=== PATIENT | female | born 1980 | race Caucasian/White ===

== ENCOUNTER 2022-09-08 08:26 | Emergency (ER) | payer SELFPAY ==
[2022-09-08] VITALS (11 sets, daily range): BP systolic 105–133; BP diastolic 66–76; PULSE 66–85; RESP 14–20; TEMP 36.8; O2SAT 99–100
--- NOTE | ~2022-09-08 | XR_ITS ---
EXAMINATION: XR chest 2V DATE: 09/08/2022 09:15 INDICATION: Chest pressure. Dizziness. TECHNIQUE: Frontal and lateral views of the chest were obtained. COMPARISON: None. FINDINGS: There is no pneumonia, pleural effusion, or pneumothorax. The heart size is normal. IMPRESSION: 1. No acute cardiopulmonary disease. Reviewed, dictated and finalized at location L.
--- NOTE | 2022-09-08 08:29 | ECG_ITS ---
Measurements Intervals [place] Rate: 68 P: 73 WI: 144 QRS: 85 QRSD: 94 T: 49 QT: 387 QTc: 413 Interpretive Statements SINUS RHYTHM WITH SINUS ARRHYTHMIA NORMAL ELECTROCARDIOGRAM NO PREVIOUS ECG AVAILABLE FOR COMPARISON Electronically Signed On 09-09-2022 12:40:46 CDT by Daniel Carbajal M.D.
[2022-09-08] MEDS: ASPIRIN 81 MG CHEWABLE TABLET 324 MG PO (09:07)
[2022-09-08 09:13] LABS: Basophils Percent Auto 0.8 % (0.2-1.2); Eosinophils Absolute Auto 0.1 K/mm3 (0-0.3); Eosinophils Percent Auto 1.3 % (0-4.4); Hematocrit 37.5 % (37.0-47.0); Hemoglobin 12.1 g/dL (12.0-15.0); Immature Granulocyte Absolute 0.01 K/mm3 (0.00-0.031); Immature Granulocyte Percent A 0.3 % (0-0.5); Lymphocytes Absolute Auto 1.13 K/mm3 (0.9-3.2); Lymphocytes Percent Auto 29.7 % (18.3-44.2); Mean Corpuscular HGB Conc 32.3 g/dl (32-36); Mean Corpuscular Hemoglobin 28.7 pg (26-34); Mean Corpuscular Volume 88.9 fl (80-100); Mean Platelet Volume 9.3 fl (7.4-10.4); Monocytes Absolute Auto 0.3 K/mm3 (0.1-0.6); Monocytes Percent Auto 7.6 % (2.6-8.5); Neutrophils Absolute Auto 2.3 K/mm3 (1.3-6.7); Neutrophils Percent Auto 60.3 % (45.5-73.1); Platelet Count Result 215 k/mm3 (150-375); Red Blood Count 4.22 M/mm3 (4.2-5.4); Red Cell Distribution Width 12.5 % (11.5-14.5); White Blood Count 3.8 K/mm3 (4.5-10.0)
[2022-09-08 09:22] LABS: Magnesium 1.9 mg/dL (1.6-2.3)
[2022-09-08 09:23] LABS: Alanine Aminotransferase 14 U/L (6-35); Albumin Level 4.2 g/dL (3.5-5.1); Alkaline Phosphatase 64 U/L (38-126); Anion Gap 7 mmol/L (8-16); Aspartate Amino Transferase 18 U/L (14-36); Bilirubin,Total 0.4 mg/dL (0.2-1.3); Blood Urea Nitrogen 15 mg/dL (7-17); Calcium 8.7 mg/dL (8.4-10.2); Carbon Dioxide 25 mmol/L (22-30); Chloride 106 mmol/L (98-107); Estimated CRCL calculation 80 ml/min; Estimated Glomerular Filt Rate > 60; Glucose 93 mg/dL (65-110); Lipase 124 U/L (23-300); Potassium 4.1 mmol/L (3.4-5.0); Sodium 138 mmol/L (137-145)
[2022-09-08 09:25] LABS: Partial Thromboplastin Time 32.2 SECONDS (22.3-36.8)
[2022-09-08 09:39] LABS: Troponin I < 0.012 ng/mL (0.000-0.034)
[2022-09-08 11:32] LABS: Influenza A QL RT-PCR Negative (Negative); Influenza B QL RT-PCR Negative (Negative); SARS-CoV-2 RNA PCR Negative (Negative)
--- NOTE | 2022-09-08 11:58 | ED.ARRPALP ---
HPI - Arrhythmia/Palpitations General Chief Complaint: Arrhythmia/Palpitations Stated Complaint: chest pain Time Seen by Provider: 09/08/22 08:47 Source: patient and RN notes reviewed Mode of arrival: ambulatory Limitations: no limitations History of Present Illness HPI narrative: This is a 42 year old female who presents for evaluation of palpitations. She states 2 weeks ago she had episode of palpitations. She describes palpitations as feeling like heart skips and then it tries to spend up. This originally only lasted 10 minutes. She also reports having episode of 2 days ago. She reports having associated dizziness and nausea. She describes dizziness as feeling you get with heart drops while on rollercoaster . She reports today she felt like she had episode of chest discomfort that lasted seconds and also palpitations. She denies leg swelling, shortness of breath. She denies history of arrhythmia or heart disease. She denies drug use. Related Data Allergies Allergy/AdvReac Type Severity Reaction Status Date / Time No Known Allergies Allergy Verified 09/08/22 09:04 Review of Systems Constitutional: Constitutional: Denies weakness Cardiovascular: Cardiovascular: Denies syncope, Denies rapid heart rate, Reports irregular heart rhythm, Denies leg edema and Denies dyspnea Respiratory: Respiratory: Denies chest congestion, Denies hemoptysis, Denies excessive phlegm production and Denies dyspnea Gastrointestinal: Gastrointestinal: Denies abdominal pain, Denies hematochezia, Denies diarrhea and Denies vomiting Genitourinary: Genitourinary: Denies hematuria and Denies dysuria Musculoskeletal: Musculoskeletal: Denies joint swelling, Denies loss of height and Denies muscle weakness Neurologic: Denies syncope, Denies focal weakness and Denies weakness PMFSH Past Medical History Medical History (Updated 09/08/22 @ 21:28 by Ewelina Duncan MD) Patient denies medical problems Surgical History Surgical History (Updated 09/08/22 @ 21:29 by Ewelina Duncan MD) No pertinent past surgical history Social History Social History (Updated 09/08/22 @ 21:29 by Ewelina Duncan MD) Smoking status: Never smoker Alcohol intake: current Substance use: never Exam Narrative: GENERAL: Well-appearing, well-nourished, and in no acute distress. HEAD: Normocephalic, atraumatic EYES: EOMI, NOSE: Nares clear, no rhinorrhea or epistaxis THROAT:Mucous membranes moist, Oropharynx normal without erythema, exudate, peritonsillar swelling or fluctuance NECK: Supple, without lymphadenopathy or mass RESPIRATORY: No respiratory distress, Airway patent, Respirations non-labored, Clear to auscultation without rales, rhonchi or wheeze HEART: Regular rate and rhythm. No murmur heard. Normal peripheral pulses. ABDOMEN: Soft, nontender, nondistended, normal active bowel sounds. No masses. No rebound or guarding, No organomegaly. EXTREMITIES: No edema, normal strength with full range of motion. SKIN: Warm, dry, normal color without rash NEURO: Alert and oriented x3. CN 2-12 grossly intact. No focal deficits. PSYCH: Normal mood and affect. Course Reevaluation(s) Reevaluation #1: I discussed with patient labs show no significant abnormality except mild leukopenia. She is unsure if this is new. I discussed she will need to follow up as outpatient. We discusssed discontinuing caffeinated drinks and decrease stress Date: 09/08/22 Time: 11:59 Vital Signs Vital signs: Vital Signs Temperature 98.2 F 09/08/22 08:29 Pulse Rate 82 09/08/22 08:29 Respiratory Rate 16 09/08/22 08:29 Blood Pressure 133/76 09/08/22 08:29 Pulse Oximetry 100 09/08/22 08:29 Oxygen Delivery Room Air 09/08/22 08:29 Temperature 98.2 F 09/08/22 08:29 Pulse Rate 74 09/08/22 12:18 Respiratory Rate 18 09/08/22 11:06 Blood Pressure 105/67 09/08/22 12:18 Pulse Oximetry 100 09/08/22 11:06 Oxygen Delivery Room Air 09/08
[2022-09-08 12:03] LABS: Troponin I < 0.012 ng/mL (0.000-0.034)
== END 2022-09-08 12:45 | disposition home or self-care (01) ==
PROVIDERS: Emergency Provider General Practice
DX: R00.2 Palpitations (principal); Z20.822 Contact with and (suspected) exposure to COVID-19
CPT/HCPCS: 36415; 71046; 80053; 81025; 83690; 83735; 84443; 84484; 85025; 85610; 85730; 87636; 93005; 99284; A9270

== ENCOUNTER 2023-03-17 08:25 | Outpatient (CLI) | payer OTHER, SELFPAY ==
--- NOTE | ~2023-03-17 | MM_ITS ---
EXAMINATION: MM screening bandar BI w maggie HISTORY: Screening mammogram TECHNIQUE: Craniocaudal and mediolateral oblique 3-D tomosynthesis images were obtained and synthetic 2-D images were generated. CAD analysis was submitted and interpreted. COMPARISON: No prior mammogram is available for comparison at this institution. BREAST PARENCHYMAL COMPOSITION: The breasts are heterogeneously dense, which may obscure small masses . FINDINGS: There is no evidence of suspicious mass, calcification, or architectural distortion to sugg est malignancy in either breast. There has been no suspicious interval change. IMPRESSION: 1. No mammographic evidence of malignancy. 2. Recommend routine screening mammography in one year. BI-RADS Category 1: Negative Reviewed, dictated and finalized at location A. [employer]
== END 2023-03-17 08:26 | disposition home or self-care (01) ==
LOC: CHSIMG 08:27
PROVIDERS: PCP Nurse Practitioner; Visit Provider Nurse Practitioner
DX: Z12.31 Encounter for screening mammogram for malignant neoplasm of breast (principal)
CPT/HCPCS: 77063; 77067